=== PATIENT | male | born 1980 | race Caucasian/White ===

== ENCOUNTER 2016-08-05 18:24 | Emergency (ER) | payer BC ==
[~2016-08-05] VITALS: Ht 172.7 cm; Wt 75.0 kg
[2016-08-05] MEDS ORDERED: ACETAMINOPHEN 325MG TABLET PO ONE (19:45)
[2016-08-05 21:12] VITALS: BP 132/65
== END 2016-08-05 21:27 | disposition home or self-care (01) ==
LOC: ER 18:25
DX: S43.402A Unspecified sprain of left shoulder joint, initial encounter (principal); R07.89 Other chest pain; R51 Headache; M25.552 Pain in left hip; R03.0 Elevated blood-pressure reading, without diagnosis of hypertension; V43.52XA Car driver injured in collision with other type car in traffic accident, initial encounter; Y93.89 Activity, other specified; Y92.410 Unspecified street and highway as the place of occurrence of the external cause
CPT/HCPCS: 70450; 71010; 73030; 99284

== ENCOUNTER 2017-02-07 11:47 | Emergency (ER) | payer BC ==
[~2017-02-07] VITALS: Ht 177.8 cm; Wt 78.0 kg
[2017-02-07] MEDS ORDERED: TETANUS, DIPHTHERIA, PERTUSSIS VAC/PF 0.5ML (>7YR OLD) IM ONE (12:15)
[2017-02-07] MEDS ORDERED: HYDROCODONE/ACETAMINOPHEN 5/325MG TABLET PO ONE (12:15)
[2017-02-07] MEDS ORDERED: LIDOCAINE HCL 1% 20ML VIAL (Pyxis) INJ INFIL ONE (12:30)
[2017-02-07] MEDS ORDERED: BACITRACIN ZINC OINT UDPKT TOP ONE (12:30)
[2017-02-07 12:40] VITALS: BP 147/77
== END 2017-02-07 14:38 | disposition home or self-care (01) ==
LOC: ER 11:47
DX: S61.217A Laceration without foreign body of left little finger without damage to nail, initial encounter (principal); W45.8XXA Other foreign body or object entering through skin, initial encounter; Y93.89 Activity, other specified; Y92.89 Other specified places as the place of occurrence of the external cause; Y99.8 Other external cause status
CPT/HCPCS: 12001; 73140; 90471; 90715; 99284; J3490; X7700; Z7610